=== PATIENT | female | born 1970 | race Caucasian/White ===

== ENCOUNTER 2023-10-03 20:10 | Emergency (ER) | payer OTHER, SELFPAY ==
[2023-10-03 20:19] VITALS: BP 135/74; PULSE 67; PULSE 75; RESP 18; TEMP 36.7; O2SAT 99; BMI 36.6
--- NOTE | 2023-10-03 20:53 | CRLHL7_ITS ---
For Patients: As a result of the Cures Act, medical imaging exams and procedure reports are released immediately into your electronic medical record. You may view this report before your referring provider. If you have questions, please contact your health care provider. INDICATION: Fall, left wrist pain. TECHNIQUE: Three views of the left wrist. COMPARISON: None available FINDINGS: Comminuted and mildly impacted distal radius fracture extending to the radiocarpal articulation. No definite ulnar styloid fracture. No definite carpal fracture or scapholunate dissociation. Soft tissue swelling. No radiopaque foreign body. IMPRESSION: Comminuted and mildly impacted distal radius fracture Dictated by Derw Alfaro MD @ 10/03/2023 9:23:40 PM (Electronically Signed)
--- NOTE | 2023-10-03 21:16 | ED_ITS ---
HPI - Extremity Injury (Upper) General Chief Complaint: Extremity Pain/Injury, Upper Stated Complaint: wrist pain Time Seen by Provider: 10/03/23 20:18 History of Present Illness HPI narrative: This 52-year-old female was out golfing and slipped on some mud that she was not aware was there and fell backwards. She fell on her outstretched left hand and comes in with pain in her left wrist. There is no obvious deformity. She does not report any other injury. Related Data Home Medications ?Medication ?Instructions ?Recorded ?Confirmed No Known Home Medications 10/03/23 10/03/23 Allergies Allergy/AdvReac Type Severity Reaction Status Date / Time No Known Drug Allergies Allergy Verified 06/17/23 16:50 Review of Systems Status of ROS: Reports: 10 or more systems reviewed and unremarkable except as noted in History and below Narrative: Constitutional: No fevers, no weight gain or loss. Eyes: No discharge. No vision changes. HENT: No congestion, no sore throat, no ear pain. Cardiovascular: No chest pain, no palpitations. Respiratory: No shortness of breath, no wheezes, no cough. Gastrointestinal: No abdominal pain, no vomiting, no diarrhea. Genitourinary: No dysuria, no hematuria. Musculoskeletal: Left wrist injury as described above. Skin: No rashes, no pruritis. Neurological: No dizziness, weakness, sensory change, speech change. Endo/Heme/Allergies: No bruising or bleeding. No polydipsia. Pysch: no suicidality, no anxiety, no insomnia. All other systems reviewed and are negative. [facility] Medical History (Updated 10/03/23 @ 21:20 by Robert Dawn MD) Bronchitis ?J40 - Bronchitis, not specified as acute or chronic (ICD-10) Surgical History (Updated 10/03/23 @ 20:57 by Nacho Davalos RN) History of hysterectomy ?Z90.710 - Acquired absence of both cervix and uterus (ICD-10) History of hernia repair ?Z98.890 - Other specified postprocedural states (ICD-10) ?Z87.19 - Personal history of other diseases of the digestive system (ICD-10) Social History Smoking Status: Never smoker Second hand tobacco smoke exposure: No How often do you have a drink containing alcohol: never AUDIT-C Alcohol total score: 0 Non-prescribed substance use: denies use Exam Narrative: Exam Narrative: Constitutional: Well-developed, well-nourished, no acute distress. HEENT: Normocephalic, atraumatic. Neck: Normal range of motion. Nontender. Supple. Heart: Intact distal pulses. Lungs: No chest discomfort. No wheezes, rhonchi, or rales. Abdomen: Nontender. Back: Normal range of motion. Extremities: Left wrist pain with minimal swelling and no obvious sign of deformity. Skin: Intact. No rash. Warm. No erythema or pallor. Neurologic: No altered sensation. No weakness. Alert and oriented. Psychiatric: No suicidality. No anxiety or depression. No insomnia. Nursing notes and vitals signs are reviewed. Const: Vital Signs, click to edit/add: Vital Signs - 24 hr 10/03/23 20:19 10/03/23 20:19 Temperature 98.0 F Pulse Rate [Left R adial] 75 Pulse Rate [Right Pulse Oximeter] 67 Respiratory Rate 18 Blood Pressure [Ri t Upper Arm] 135/74 Pulse Oximetry 99 Oxygen Delivery Me thod Room Air Course Vital Signs Vital signs: Initial Vital Signs Temperature 98.0 F 10/03/23 20:19 Temperature Source Temporal Artery Scan 10/03/23 20:19 Pulse Rate 67 10/03/23 20:19 Pulse Rhythm Regular 10/03/23 20:19 Pulse Strength 3+ Normal 10/03/23 20:19 Respiratory Rate 18 10/03/23 20:19 Blood Pressure 135/74 10/03/23 20:19 Blood Pressure Mean 94 10/03/23 20:19 Blood Pressure Position Sitting 10/03/23 20:19 Pulse Oximetry 99 10/03/23 20:19 Oxygen Delivery Method Room Air 10/03/23 20:19 Vital Signs Temperature 98.0 F 10/03/23 20:19 Pulse Rate 67 10/03/23 20:19 Respiratory Rate 18 10/03/23 20:19 Blood Pressure 135/74 10/03/23 20:19 Pulse Oximetry 99 10/03/23 20:19 Oxygen Delivery Method Room Air 10/03/23 20:19 Temperature 98.0 F 10/03/23 20:19 Pulse Rate 67 10/03/23 20:19 Respiratory Rate 18 10/03/23 20:19 Blood Pressure 135/74 10/03/23 20:19 Pulse Oximetry 99 10/03/23 20:19 Oxygen Delivery Method Room Air 10/03/23 20:19 MDM - Extremity Injury (Upper) MDM Narrative Medical decision making narrative: This patient has an injury to her left wrist. X-ray images by my review with radiology report pending show a nondisplaced fracture across the distal radius and probable ulnar component also. The patient was placed in a volar splint using Ortho Glass material. She is instructed to follow-up with orthopedic clinic for further evaluation and treatment. A prescription for some tablets of [place] is provided from the [employer] machine. Discharge Plan Discharge Clinical Impression: Fracture of wrist Patient Disposition: Home, Self-Care Condition: Stable Additional Instructions: Wear splint and use pain medicines as needed and directed. Follow-up with orthopedic clinic for further management. Call [phone] for appointment. Prescriptions: No Action No Known Home Medications Follow Up/Referrals: Provider,Not a Local [Primary Care Provider] - Stand Alone Forms: [email or web address] Info Instructions
[2023-10-03 21:31] VITALS: BP 132/75; PULSE 71; RESP 18; TEMP 36.7; O2SAT 99
[2023-10-03 21:32] VITALS: BP 132/75; PULSE 71; RESP 18; TEMP 36.7
== END 2023-10-03 21:32 | disposition home or self-care (01) ==
LOC: ED 21:21
PROVIDERS: Emergency Provider Emergency Medicine Emergency Medical Services; PCP Family Medicine
DX: S52.502A Unspecified fracture of the lower end of left radius, initial encounter for closed fracture (principal); W01.0XXA Fall on same level from slipping, tripping and stumbling without subsequent striking against object, initial encounter; Y93.53 Activity, golf
CPT/HCPCS: 29125; 73110; 99283; 99284

== ENCOUNTER 2023-12-24 16:00 | Outpatient (RCR) | payer OTHER, SELFPAY ==
--- NOTE | 2023-11-21 16:27 | OT.OPOE ---
OT Outpatient Ortho Eval OT Outpatient Ortho Eval* Start: 11/21/23 14:32 Freq: Status: Active Protocol: Document 11/21/23 14:32 BHUPINDER (Rec: 11/21/23 16:23 BHUPINDER [id number]) E-signed By Alejandra Herrera, OTR/L, CLT OT OP Ortho Eval Details Complexity Complexity Low Insurance Information Insurance Information [facility] Other Insurance Joshua Gupta Outpatient History/Precautions Current Condition/Medical Diagnosis Referring Provider Dr. Robert Blue Medical Diagnoses S52.502D - Unspecified fracture of the lower end of left radius, subsequent encounter for closed fracture with routine healing Treatment Diagnosis Pain in L wrist, M25.532 Stiffness of L wrist, M25.632 Muscle Weakness, M62.81 Date of Onset Oct 03 2023 Precautions Lifting Restrictions Other Precautions Provider wrote: patient instructed to avoid heavy lifting weight-bearing for an additional 2 weeks (written at apt on 11/12/23) Other Conditions Bronchitis, not specified as acute or chronic History of hysterectomy: Z90. 710 - Acquired absence of both cervix and uterus (ICD-10) History of hernia repair: Z98. 890 - Other specified postprocedural states (ICD-10) Z87.19 - Personal history of other diseases of the digestive system (ICD-10) Medical/Functional History Medical History Reviewed Yes Prior Level of Function/Mobility Patient is Indep with her ADLs /IADLs and works a full-time job for [employer] Social History Employment Status Farm Contractor Employed Current Occupation Accounting, [employer], phone and computer work Hobbies Golf and Pickle Ball Ortho Subjective Subjective Subjective Patient is a pleasant 52-year- old R hand dominant female who stepped off the golf cart, slipped on mud and had a FOOSH injury to the L hand. DOI occurred on 10/03/23, she was diagnosed with a left distal radius fracture that was treated conservatively in a short arm cast. This was removed at her Ortho f/u apt on 11/12/23. She was issued a removable wrist brace and instructed to wear this for the next 2 weeks (slowly weaning off from wearing it) and told to avoid heavy lifting & weight-bearing for an additional 2 weeks (written at apt on 11/12/23, making the end date the November ). Pain Assessment Pain Pain Yes Pain Comments 2/10 with movement worse pain with rotation ( supination) Goniometric Comments Goniometric Comments Goniometric Comments 37 degrees wrist extension (L wrist) compared to the R wrist which has 46 degrees 32 degrees of wrist flexion (L wrist) compared to the R wrist which has 60 degrees L wrist supination 71 degrees (R wrist 88 degrees) Hand Pinch/Exploration Geologist Strength Hand Pinch/Exploration Geologist Strength Hand Pinch/Exploration Geologist Strength Left Hand,Right Hand Left Hand Exploration Geologist Strength Position 1 in Elbow 0 Flexion (lbs) Exploration Geologist Strength Position 2 in Elbow 1 Extension (lbs) Lateral Pinch Strength (lbs) 8.5 Three Point Pinch (lbs) 7 Tip Pinch Strength (lbs) 6 Right Hand Exploration Geologist Strength Position 1 in Elbow 51 Flexion (lbs) Exploration Geologist Strength Position 2 in Elbow 41 Extension (lbs) Lateral Pinch Strength (lbs) 18 Three Point Pinch (lbs) 14 Tip Pinch Strength (lbs) 13 OT Objective Data Hand Hand Dominance Right Observations/Posture/Limb Appearance Objective Observations Musculoskeletal: Left upper extremity has no obvious deformity. Mild tenderness palpation of the wrist. Wrist range of motion was limited. Radial, ulnar, and median sensation intact to light touch. Thumb extension, thumb IP flexion, thumb opposition, and intrinsics are intact. Unable to make a full composite fist, lags 1.8 cm's Skin/Wounds/Edema Comments L Hand: Mild swelling around the wrist extending into the forearm. L digits are swollen, with the middle finger having the most swelling. Left Thumb tendon stiffness. Sensation Sensation Assessment Summary Comments L Hand: Fingers warm well perfused with 2+ radial pulse. Additional Information Objective Additional Information IMAGING: AP, lateral, oblique x-rays of left wrist performed in clinic today were reviewed. These demonstrated a healing intra-articular, nondisplaced left distal radius fracture. Compared to x-rays obtained 10/14/2023, there has been interval sclerosis and callus formation with no change in alignment. OT Problems Problems Problems Decreased Strength,Decreased Range of Motion,Pain,Lifting, Gripping,Pinching Other Problems Opening Containers,Dressing, Computer Patient Potential Excellent Occupational Therapy Treatment Plan - OP Potential Rehabilitation Potential Excellent Barriers Barriers to goal attainment None noted Set Goals Goals Set with Patient Yes Goals Goals 1. Patient will advance from 37 degrees wrist extension to >43 degrees w/o increase in pain level in order to wipe her countertops and do other household cleaning chores. 2. Patient will advance from 32 degrees of wrist flexion to >50 degrees w/o increase in pain level in order to wash and style her hair. 3. Patient will advance her L wrist supination from 71 degrees to >81 degrees w/o increase in pain level in order to open packages and containers. 4. Patient will be Indep with performing her HEP with 100% accuracy 5-6x/week for 3 consecutive weeks. 5. Patient will increase L hand type caster strength from (0 and 1 lb) to >30 lbs in order to return to her normal hobbies and leisure activities. Treatment Plan Treatment Plan Evaluation,Edema Control,Joint Mobilization,Manual Therapy, Therapeutic Exercise,Self Care /Home Management,Education Expected Frequency 1-2x Week Expected Duration 8-10 Weeks Home Program Home Program Home Program Initiated Home Program Specifics L hand/wrist AROM to end ranges Tendon Glides Yellow Thera putty gentle type caster squeezes for 5 mins 3x/daily Circles with 2 golf balls in the palm of the L hand L Hand over tennis ball (each finger to thumb, isometric pushes) Certification Certification Statement I Certify That: Therapy Services Provided, Therapy Plan Established, Therapy Plan Reviewed Certification Information Clinic ID # [id number] Initial Certification Date 11/21/23 Recertification Due Date 02/19/24 Provider Signature Required Yes Provider Signature Shows Agreement With POC & Medical Necessity Physician NPI Number Write NPI# Here Physician Comment/Change Comment or Changes Physician Signature & Date Requested Please Sign/Date Here
== END 2023-12-24 17:02 | disposition home or self-care (01) ==
PROVIDERS: PCP Family Medicine; Visit Provider Orthopaedic Surgery
DX: S52.502D Unspecified fracture of the lower end of left radius, subsequent encounter for closed fracture with routine healing (principal); M25.532 Pain in left wrist; M25.632 Stiffness of left wrist, not elsewhere classified; M62.81 Muscle weakness (generalized); Z51.89 Encounter for other specified aftercare
CPT/HCPCS: 97110; 97165; X5282